=== PATIENT | male | born 1980 | race Caucasian/White ===

== ENCOUNTER 2017-06-20 16:48 | Emergency (ER) | payer OTHER ==
[~2017-06-20] VITALS: Ht 188 cm; Wt 75.0 kg
[2017-06-20] MEDS ORDERED: [UNRECOGNIZED DRUG - CODE] PO (18:42)
[2017-06-20] MEDS ORDERED: WARF5TAB7 PO (18:42)
[2017-06-20] MEDS ORDERED: RISP2TAB3 PO (18:42)
[2017-06-20] MEDS ORDERED: METH-356 PO (18:42)
[2017-06-20 18:48] VITALS: BP 114/77
[2017-06-20 19:02] LABS: BASOPHILS # (AUTO) 0.01 x10^3/uL (0-0.1); BASOPHILS % (AUTO) 0 % (0-1); EOSINOPHILS # (AUTO) 0.11 x10^3/uL (0-0.4); EOSINOPHILS % (AUTO) 1 % (1-7); HCT (SEDRATE) 33.5 % (39.2-51.8); LYMPHOCYTES % (AUTO) 12 % (22-44); MD NO; MEAN CORPUSCULAR HEMOGLOBIN 26.6 pg (27.5-34.5); MEAN CORPUSCULAR HGB CONC 32.4 g/dL (33.2-36.2); MEAN CORPUSCULAR VOLUME 82.3 fL (81-97); MEAN PLATELET VOLUME 7.7 fL (7.4-10.4); MONOCYTES # (AUTO) 0.15 x10^3/uL (0.2-0.8); MONOCYTES % (AUTO) 1 % (2-9); NEUTROPHILS # (AUTO) 9.53 x10^3/uL (1.8-6.8); NEUTROPHILS % (AUTO) 86 % (42-75); PLATELET COUNT 538 x10^3/uL (130-400); RED BLOOD COUNT 4.07 x10^6/uL (4.38-5.82); RED CELL DISTRIBUTION WIDTH 17.2 % (9.4-14.8)
[2017-06-20 19:10] LABS: INTERNATIONAL NORMALIZED RATIO 4.28 (0.93-1.1); PROTHROMBIN TIME 42.8 Seconds (9.6-11.5)
[2017-06-20 19:13] LABS: ALBUMIN 3.5 g/dL (3.4-5.0); ANION GAP 8 mmol/L (5-15); CALCIUM 9.3 mg/dL (8.5-10.1); CHLORIDE 100 mmol/L (98-107)
[2017-06-20 19:38] LABS: SEDIMENTATION RATE 90 mm/hr (0-10)
== END 2017-06-20 20:52 | disposition home or self-care (01) ==
LOC: ED 20:46
DX: R41.82 Altered mental status, unspecified (principal); R41.0 Disorientation, unspecified; F41.9 Anxiety disorder, unspecified; Z79.01 Long term (current) use of anticoagulants
CPT/HCPCS: 36415; 70450; 71045; 80048; 82040; 82962; 85025; 85610; 85651; 85730; 86141; 93005; 99285

== ENCOUNTER 2017-09-16 22:30 | Emergency (ER) | payer MEDICAID ==
[~2017-09-16] VITALS: Ht 188 cm; Wt 73.0 kg
[~2017-09-16 22:30] MED LIST: AMOX875T PO; ESCI10TA10 PO; METH-356 PO; RISP2TAB3 PO; TESTOSTERONE; WARF-36 PO; [UNRECOGNIZED DRUG - CODE] PO
[2017-09-16] MEDS ORDERED: LIDOCAINE-MPF 1%, 5ML ONE (23:52)
[2017-09-16] MEDS ORDERED: CEFTRIAXONE 250 MG ONE (23:53)
[2017-09-16] MEDS ORDERED: AZITHROMYCIN 250 MG TABLET ONE (23:53)
[2017-09-17] MEDS ORDERED: CEFTRIAXONE 250 MG IM ONE
[2017-09-17] MEDS ORDERED: AZITHROMYCIN 500 MG TABLET PO ONE
[2017-09-17 01:01] VITALS: BP 136/84
== END 2017-09-17 01:17 | disposition home or self-care (01) ==
LOC: ED 23:59
DX: S70.02XA Contusion of left hip, initial encounter (principal); G89.11 Acute pain due to trauma; G89.29 Other chronic pain; A56.01 Chlamydial cystitis and urethritis; F17.200 Nicotine dependence, unspecified, uncomplicated; W19.XXXA Unspecified fall, initial encounter; Y93.89 Activity, other specified; Y92.89 Other specified places as the place of occurrence of the external cause; Y99.8 Other external cause status
CPT/HCPCS: 70450; 73502; 87491; 87591; 96372; 99285; J0696